=== PATIENT | male | born 1960 | race Caucasian/White ===

== ENCOUNTER → 2018-11-26 08:56 | Outpatient (CLI) | payer OTHER, SELFPAY ==
[2014-12-08 19:47] VITALS: BMI 31.4
== END ==
PROVIDERS: Family Provider Family Medicine; PCP Family Medicine; Referring Provider Nurse Practitioner Primary Care; Visit Provider Nurse Practitioner Primary Care
DX: E87.6 Hypokalemia (principal)
CPT/HCPCS: 36415; 84132

== ENCOUNTER 2019-07-14 19:51 | Emergency (ER) | payer OTHER, SELFPAY ==
[2019-07-14 19:52] VITALS: BP 194/98; PULSE 70; RESP 18; TEMP 36.6; O2SAT 97; BMI 28.8
[2019-07-14] MEDS: Diphth,Pertuss(Acell),Tet Vac 0.5 ML Vial IM (20:14)
--- NOTE | 2019-07-14 20:52 | ED.DEP ---
ED Disposition - Plan for ED Patient: Instructions: ED Laceration Hand Referrals: Taz Simpson DO [Primary Care Provider] -
--- NOTE | 2019-07-14 20:56 | ED.VISSUMM ---
- ER Visit Summary Date of Service: 07/14/19 Chief Complaint: Left hand laceration History of Present Illness: The patient is a 59 M presenting with laceration to left hand. Patient was using a utility knife and accidentally slipped and cut his left hand. He is right-handed. His last tetanus is unknown. No other injuries. Physical Examination: Vitals are stable. Patient is afebrile. Alert no acute distress. HEENT exam is unremarkable. Neck is supple. Lungs are clear and equal bilaterally. Heart is regular rate and rhythm. Extremities 5 cm laceration proximal left palm. Tendon function is normal. Normal cap refill. Skin is warm and dry. No focal neurologic deficit. Remainder of exam is unremarkable. Emergency Department Course and Treatment: Patient was given tetanus IM. Wound was irrigated with normal saline. Anesthetized with lidocaine. 8, 4-0 simple sutures were placed. Patient tolerated this well. Advised wound care instructions. Advised to follow-up with primary care physician. Advised return to ED for worsening complaints. Disposition: Discharge home Impression: Left hand laceration, laceration repair This note was generated with [employer] dictation software. It may contain incorrect words, spelling, and punctuation that were not noted in review of the chart prior to signing ED Disposition - Plan for ED Patient: Instructions: ED Laceration Hand Referrals: Taz Simpson DO [Primary Care Provider] -
[2019-07-14 20:57] VITALS: BP 176/85; PULSE 70; RESP 16; O2SAT 98
== END 2019-07-14 21:20 | disposition home or self-care (01) ==
LOC: ED 21:03
PROVIDERS: Emergency Provider Emergency Medicine; PCP Family Medicine
DX: S61.412A Laceration without foreign body of left hand, initial encounter (principal); W26.0XXA Contact with knife, initial encounter; Y93.9 Activity, unspecified; Y92.9 Unspecified place or not applicable; I10 Essential (primary) hypertension; E11.9 Type 2 diabetes mellitus without complications; Z79.84 Long term (current) use of oral hypoglycemic drugs; Z79.82 Long term (current) use of aspirin; Z79.899 Other long term (current) drug therapy
CPT/HCPCS: 12002; 90471; 90715; 99283

== ENCOUNTER 2021-06-19 14:17 | Outpatient (CLI) | payer OTHER, SELFPAY ==
[2021-06-19 14:56] LABS: Protein, Urine (Random) 36.2 mg/dL (<11.9); Protein:Creat Ratio 836 mg/g CRE (0-200)
[2021-06-19 15:10] LABS: Anion Gap 4 (5-15); BUN 24 mg/dL (7-18); BUN/Creat Ratio 20.2 RATIO (10-20); Calcium,Total 8.6 mg/dL (8.5-10.1); Chloride 107 mmol/L (98-107); Creatinine, Serum 1.19 mg/dL (0.70-1.30); EST Glomerular Filtration Rate 66 mL/min (>60); Est Glom Filt Rate - Afr Amer 80 mL/min (>60); Glucose 135 mg/dL (74-106); Potassium 4.2 mmol/L (3.5-5.1); Sodium Level 139 mmol/L (136-145)
[2021-06-19 15:12] LABS: Osmolality, Serum 294 mOsm/KG (280-301)
[2021-06-19 17:05] LABS: Osmolality, Urine 608 mOsm/KG
== END 2021-06-19 23:59 | disposition home or self-care (01) ==
PROVIDERS: Visit Provider Internal Medicine Nephrology
DX: E87.6 Hypokalemia (principal); E11.21 Type 2 diabetes mellitus with diabetic nephropathy
CPT/HCPCS: 36415; 80048; 82570; 83930; 83935; 84133; 84156